=== PATIENT | female | born 1990 | race Asian ===

== ENCOUNTER 2017-01-13 13:12 | Observation (INO) | payer OTHER ==
[2016-08-13 13:38] VITALS: BP 139/91
[~2017-01-13 13:12] MED LIST: CEPH-264 PO
[2017-01-13 14:34] LABS: NEG OBC AMNIO NEG; POS OBC AMNIO POS
[2017-01-13 14:45] LABS: BILIRUBIN,URINE NEGATIVE (NEG); GLUCOSE,URINE NEGATIVE (NEG); NITRITE,URINE NEGATIVE (NEG); PROTEIN,URINE NEGATIVE (NEG-TRACE); UROBILINOGEN,URINE 0.2 mg/dL (0.2 mg/dL)
== END 2017-01-13 15:10 | disposition home or self-care (01) ==
LOC: 3 SO LND 13:12
PROVIDERS: ADMIT Specialist; ATTEND Specialist
DX: O42.913 Preterm premature rupture of membranes, unspecified as to length of time between rupture and onset of labor, third trimester (principal); Z3A.29 29 weeks gestation of pregnancy
CPT/HCPCS: 36415; 81003; 84112; G0378; G0379